=== PATIENT | female | born 1990 | race Caucasian/White ===

== ENCOUNTER 2017-02-23 17:50 | Emergency (ER) | payer BC ==
[~2017-02-23] VITALS: Ht 160 cm; Wt 62.0 kg
[~2017-02-23 17:50] MED LIST: IBUPROFEN800 MG PO; LORTAB 5-325 M1 EACH PO; MOTRIN400 MG PO; MOTRIN600 MG PO; NORCO 5/3251 TABLET PO; PERCOCET 5/31 TABLET PO; PRENATAL TABLE1 EAC3 PO; TYLENOL EXTRA500 MG PO; ZITHROMAX500 MG PO
[2017-02-23 19:02] LABS: ADD MIUA? YES; BILIRUBIN NEGATIVE; BLOOD SMALL; COLOR YELLOW ((YELLOW)); GLUCOSE (STRIP) NEGATIVE; KETONES NEGATIVE; LEUKOCYTES NEGATIVE; NITRITE NEGATIVE; PROTEIN (STRIP) NEGATIVE; SPECIFIC GRAVITY 1.015 (1.000-1.030); UROBILINOGEN 0.2 MG/DL (0.2-1.0)
[2017-02-23 19:22] LABS: AMORPHOUS URATES CRYSTALS 3+; BACTERIA NONE SEEN /HPF; CASTS NONE SEEN /LPF; CRYSTALS PRESENT; EPITHELIAL CELLS 2+ /HPF; MUCUS NONE SEEN /LPF; RED BLOOD CELLS NONE SEEN /HPF (0-5); WHITE BLOOD CELLS RARE /HPF (0-5)
[2017-02-23 19:35] LABS: HEMATOCRIT 37.4 % (36.0-46.0); MCH 30.7 PG (29.0-34.0); MCHC 34.2 G/DL (30.0-36.0); MCV 89.7 FL (83-99); PLATELET COUNT 277 K/uL (156-360); RBC DIS.WIDTH-CV 12.3 % (11.8-14.6); RBC DIS.WIDTH-SD 40.2 % (39-53); RED BLOOD COUNT 4.17 M/uL (3.80-5.20); WHITE BLOOD COUNT 11.5 K/uL (4.1-10.2)
[2017-02-23 19:56] LABS: CHLORIDE 104 mEq/L (99-109); SODIUM 135 mEq/L (136-147)
[2017-02-23 19:58] LABS: GLUCOSE 83 mg/dL (70-99)
[2017-02-23 19:59] LABS: ANION GAP 7 MEQ/L (2-14)
[2017-02-23 20:00] LABS: TOTAL BILIRUBIN 0.2 mg/dL (0.0-1.0)
[2017-02-23 20:01] LABS: ALKALINE PHOSPHATASE 42 IU/L (3-129)
[2017-02-23 20:02] LABS: GFR ESTIMATE (CALCULATED) > 59 mL/min/
[2017-02-23 20:03] LABS: UREA NITROGEN (BUN) 10 mg/dL (9-23)
[2017-02-23 20:05] LABS: LIPASE 31 U/L (1.0-51.0)
[2017-02-23 20:29] LABS: QUANTITATIVE HCG 65378.1 MIU/ML
[2017-02-23] MEDS ORDERED: GAS RELIEF 8080 MG PO (21:57)
[2017-02-23 22:18] VITALS: BP 117/76
== END 2017-02-23 22:19 | disposition home or self-care (01) ==
LOC: EME 17:50
PROVIDERS: Nurse Practitioner Family
DX: O34.81 Maternal care for other abnormalities of pelvic organs, first trimester (principal); N83.202 Unspecified ovarian cyst, left side; R10.30 Lower abdominal pain, unspecified; Z3A.12 12 weeks gestation of pregnancy; Z87.891 Personal history of nicotine dependence
CPT/HCPCS: 76801; 80053; 81003; 83690; 84702; 85027; 99281; 99284

== ENCOUNTER → 2017-06-10 | Outpatient (CLI) | payer BC ==
[~2017-06-10] VITALS: Ht 157.5 cm; Wt 71.0 kg
[~2017-06-10] MED LIST changes: +GAS RELIEF 8080 MG PO; +TYLENOL REGULA325 MG PO
[2017-06-10 10:00] VITALS: BP 125/62
== END | disposition home or self-care (01) ==
LOC: IVINF 09:52
DX: Z31.82 Encounter for Rh incompatibility status (principal); Z3A.28 28 weeks gestation of pregnancy
CPT/HCPCS: 96372; J2790

== ENCOUNTER 2017-07-22 22:05 | Emergency (ER) | payer BC ==
[~2017-07-22] VITALS: Ht 157.5 cm; Wt 76.2 kg
[2017-07-22 23:43] LABS: HEMATOCRIT 32.3 % (36.0-46.0); MCH 31.4 PG (29.0-34.0); MCHC 34.4 G/DL (30.0-36.0); MCV 91.5 FL (83-99); MEAN PLAT.VOLUME 10.1 uM^3 (9.5-12.4); PLATELET COUNT 240 K/uL (156-360); RBC DIS.WIDTH-CV 12.3 % (11.8-14.6); RBC DIS.WIDTH-SD 40.9 % (39-53); RED BLOOD COUNT 3.53 M/uL (3.80-5.20); WHITE BLOOD COUNT 17.5 K/uL (4.1-10.2)
[2017-07-22 23:52] LABS: CHLORIDE 107 mEq/L (99-109); POTASSIUM 3.2 mEq/L (3.7-5.4); SODIUM 138 mEq/L (136-147)
[2017-07-22 23:54] LABS: GLUCOSE 110 mg/dL (70-99)
[2017-07-22 23:55] LABS: ANION GAP 12 MEQ/L (2-14)
[2017-07-22 23:58] LABS: GFR ESTIMATE (CALCULATED) > 59 mL/min/
[2017-07-22 23:59] LABS: UREA NITROGEN (BUN) 5 mg/dL (9-23)
[2017-07-23 00:02] LABS: TROP-I INTERPRETATION NEGATIVE; TROPONIN-I < 0.01 ng/mL (0.0-0.30)
[2017-07-23 02:53] VITALS: BP 129/82
== END 2017-07-23 02:53 | disposition home or self-care (01) ==
LOC: EME 22:05
PROVIDERS: Physician Assistant Medical
DX: O26.893 Other specified pregnancy related conditions, third trimester (principal); R07.89 Other chest pain; R00.2 Palpitations; R06.02 Shortness of breath; Z3A.34 34 weeks gestation of pregnancy; Z87.891 Personal history of nicotine dependence
CPT/HCPCS: 71020; 71275; 80048; 83880; 84484; 85027; 85379; 93005; 99281; 99285; J7030

== ENCOUNTER 2017-08-26 08:13 | Inpatient (IN) | payer BC ==
[~2017-08-26] VITALS: Ht 157.5 cm; Wt 79.8 kg
[2017-08-26] VITALS (15 sets, daily range): BP systolic 103–144; BP diastolic 54–77
[2017-08-26 09:39] LABS: EOSINOPHIL (%) 2.6 % (0-5); EOSINOPHIL COUNT 0.3 K/uL (0-0.3); HEMATOCRIT 33.1 % (36.0-46.0); IMMATURE GRANULOCYTE (%) 1.4 % (0.0-0.7); IMMATURE GRANULOCYTE COUNT 0.2 K/uL; INSTRUMENT ABS NEUTROPHIL CT 8.6 K/uL; LYMPHOCYTE COUNT 2.4 K/uL (1.0-2.8); MCH 30.2 PG (29.0-34.0); MCHC 32.6 G/DL (30.0-36.0); MCV 92.5 FL (83-99); MEAN PLAT.VOLUME 10.4 uM^3 (9.5-12.4); MONOCYTE (%) 10.4 % (3-12); MONOCYTE COUNT 1.3 K/uL (0-0.8); NEUTROPHIL (%) 66.9 % (45-76); NEUTROPHIL COUNT 8.6 K/uL (1.8-6.4); PLATELET COUNT 254 K/uL (156-360); RBC DIS.WIDTH-CV 13.2 % (11.8-14.6); RBC DIS.WIDTH-SD 44.3 % (39-53); RED BLOOD COUNT 3.58 M/uL (3.80-5.20); WHITE BLOOD COUNT 12.9 K/uL (4.1-10.2)
[2017-08-27 07:19] LABS: BASOPHIL COUNT 0.1 K/uL (0-0.1); EOSINOPHIL (%) 2.1 % (0-5); EOSINOPHIL COUNT 0.3 K/uL (0-0.3); HEMATOCRIT 31.5 % (36.0-46.0); IMMATURE GRANULOCYTE (%) 1.1 % (0.0-0.7); IMMATURE GRANULOCYTE COUNT 0.2 K/uL; INSTRUMENT ABS NEUTROPHIL CT 10.4 K/uL; LYMPHOCYTE COUNT 3.6 K/uL (1.0-2.8); MCH 31.2 PG (29.0-34.0); MCHC 33.7 G/DL (30.0-36.0); MCV 92.6 FL (83-99); MEAN PLAT.VOLUME 10.8 uM^3 (9.5-12.4); MONOCYTE (%) 11.5 % (3-12); MONOCYTE COUNT 1.9 K/uL (0-0.8); NEUTROPHIL (%) 63.1 % (45-76); NEUTROPHIL COUNT 10.4 K/uL (1.8-6.4); PLATELET COUNT 242 K/uL (156-360); RBC DIS.WIDTH-CV 13.3 % (11.8-14.6); RBC DIS.WIDTH-SD 44.6 % (39-53); WHITE BLOOD COUNT 16.5 K/uL (4.1-10.2)
[2017-08-27 07:56] VITALS: BP 116/63
[2017-08-27 15:40] VITALS: BP 115/53
== END 2017-08-27 20:00 | disposition home or self-care (01) | DRG 775 ==
LOC: LDRP-OP → 2WEST 08:14 → LDRP-OP 19:54 → 2WEST 08-27 20:00 → LDRP-OP 10-02 13:34
PROVIDERS: Advanced Practice Midwife
PROC: 10907ZC Drainage of Amniotic Fluid, Therapeutic from Products of Conception, Via Natural or Artificial Opening (ICD-10-PCS; principal; 2017-08-26)
PROC: 10E0XZZ Delivery of Products of Conception, External Approach (ICD-10-PCS; principal; 2017-08-26)
PROC: 3E033VJ Introduction of Other Hormone into Peripheral Vein, Percutaneous Approach (ICD-10-PCS; principal; 2017-08-26)
DX: O26.893 Other specified pregnancy related conditions, third trimester (principal); O99.334 Smoking (tobacco) complicating childbirth; F17.200 Nicotine dependence, unspecified, uncomplicated; Z67.41 Type O blood, Rh negative; Z3A.39 39 weeks gestation of pregnancy; Z37.0 Single live birth; Z23 Encounter for immunization
CPT/HCPCS: 83030; 85025; 86850; 86900; 86901; 90686; J2790; J7120

== ENCOUNTER 2017-10-18 09:53 | Day surgery (SDC) | payer BC ==
[~2017-10-18] VITALS: Ht 160 cm; Wt 68.0 kg
[2017-10-18 10:19] VITALS: BP 108/68
[2017-10-18] MEDS ORDERED: ENDOCET 5-3251 EACH PO (12:44)
[2017-10-18 13:54] VITALS: BP 115/70
[2017-10-18 14:55] VITALS: BP 110/62
== END 2017-10-18 15:12 | disposition home or self-care (01) ==
LOC: SDC 09:53
PROC: 0U574ZZ Destruction of Bilateral Fallopian Tubes, Percutaneous Endoscopic Approach (ICD-10-PCS; principal; 2017-10-18)
DX: Z30.2 Encounter for sterilization (principal); F17.200 Nicotine dependence, unspecified, uncomplicated
CPT/HCPCS: J0330; J1100; J1885; J2250; J2405; J2710; J3010; Q0175; S0020

== ENCOUNTER 2018-02-23 09:25 | Emergency (ER) | payer BC ==
[~2018-02-23] VITALS: Ht 160 cm; Wt 64.2 kg
[~2018-02-23 09:25] MED LIST changes: +ENDOCET 5-3251 EACH PO
[2018-02-23 09:54] LABS: HEMOGLOBIN 14.3 G/DL (11.9-15.5); MCV 90.9 FL (83-99); PLATELET COUNT 260 K/uL (156-360); RBC DIS.WIDTH-CV 12.5 % (11.8-14.6); RBC DIS.WIDTH-SD 41.1 % (39-53); RED BLOOD COUNT 4.62 M/uL (3.80-5.20); WHITE BLOOD COUNT 6.8 K/uL (4.1-10.2)
[2018-02-23 10:03] LABS: ALBUMIN 4.5 g/dL (3.2-4.8)
[2018-02-23 10:04] LABS: CHLORIDE 106 mEq/L (99-109); POTASSIUM 4.3 mEq/L (3.7-5.4); SODIUM 140 mEq/L (136-147)
[2018-02-23 10:06] LABS: GLUCOSE 89 mg/dL (70-99); TOTAL PROTEIN 7.2 g/dL (6.4-8.3)
[2018-02-23 10:08] LABS: TOTAL BILIRUBIN 0.6 mg/dL (0.0-1.0)
[2018-02-23 10:09] LABS: ALKALINE PHOSPHATASE 55 IU/L (3-129)
[2018-02-23 10:10] LABS: CREATININE 0.7 mg/dL (0.6-1.3); GFR ESTIMATE (CALCULATED) > 59 mL/min/
[2018-02-23 10:11] LABS: AST (GOT) 17 IU/L (2-34); UREA NITROGEN (BUN) 9 mg/dL (9-23)
[2018-02-23 10:13] LABS: ALT (GPT) 17 IU/L (3-49)
[2018-02-23 10:20] LABS: QUANTITATIVE HCG < 4.0 MIU/ML
[2018-02-23 10:25] LABS: APPEARANCE SL.HAZY ((CLEAR)); BILIRUBIN NEGATIVE; BLOOD NEGATIVE; COLOR YELLOW ((YELLOW)); GLUCOSE (STRIP) NEGATIVE; KETONES NEGATIVE; LEUKOCYTES NEGATIVE; NITRITE NEGATIVE; PROTEIN (STRIP) NEGATIVE; SPECIFIC GRAVITY 1.018 (1.000-1.030); UROBILINOGEN 0.2 MG/DL (0.2-1.0)
[2018-02-23 10:34] LABS: BACTERIA RARE /HPF; EPITHELIAL CELLS 1+ /HPF; MUCUS TRACE /LPF; RED BLOOD CELLS 0-5 /HPF (0-5); UCUL ADDED? NO; WHITE BLOOD CELLS 0-5 /HPF (0-5)
[2018-02-23] MEDS ORDERED: MOTRIN600 MG PO (12:41)
[2018-02-23] MEDS ORDERED: PERCOCET 5/31 TABLET PO (12:41)
[2018-02-23 12:51] VITALS: BP 122/77
[2018-02-23 15:14] LABS: SOURCE SWAB
== END 2018-02-23 12:52 | disposition home or self-care (01) ==
LOC: EME 09:25
PROVIDERS: Nurse Practitioner Acute Care
DX: R10.2 Pelvic and perineal pain (principal); F17.200 Nicotine dependence, unspecified, uncomplicated
CPT/HCPCS: 80053; 81003; 84702; 85027; 87210; 87491; 87591; 99281; 99283